=== PATIENT | female | born 1980 | race Caucasian/White ===

== ENCOUNTER → 2016-08-27 | Outpatient (CLI) | payer BC ==
[~2016-08-27] MED LIST: PRENTAB26 PO
== END | disposition home or self-care (01) ==
LOC: C.LAB1850 16:23
PROVIDERS: ATTEND Physical Medicine & Rehabilitation
DX: M79.89 Other specified soft tissue disorders (principal)

== ENCOUNTER → 2016-09-24 | Outpatient (CLI) | payer BC, OTHER | END | disposition home or self-care (01) | LOC: C.RDSM 09:55 | PROVIDERS: ATTEND Physical Medicine & Rehabilitation | DX: M79.89 Other specified soft tissue disorders (principal) ==

== ENCOUNTER → 2017-04-23 | Outpatient (CLI) | payer BC ==
--- NOTE | 2017-04-23 08:49 | DIAGNOSTIC IMAGING REPORT ---
LEFT SHOULDER 3 VIEWS HISTORY: Left shoulder pain. COMPARISON: None. FINDINGS: There is no fracture or dislocation. Soft tissues are unremarkable. No radiopaque foreign bodies. The left clavicle is intact. IMPRESSION: No fracture or dislocation within the left shoulder. Electronically signed by: Berny Benson M.D. 04/23/2017 8:48 AM Dictated Date/Time: 04/23/2017 8:47 AM
== END | disposition home or self-care (01) ==
LOC: C.RADBC 08:16
PROVIDERS: ATTEND Nurse Practitioner Adult Health
DX: M25.512 Pain in left shoulder (principal)

== ENCOUNTER → 2017-04-25 | Outpatient (CLI) | payer BC ==
[2017-04-25 10:53] LABS: BASO % 0.4 %; EOS % 2.1 %; HEMATOCRIT 39.8 % (37-47); LYMPH % 45.8 %; LYMPH ABS # 2.21 K/uL (1.2-3.4); MEAN CELL VOLUME 93.6 fL (80-100); MEAN CORPUSCULAR HEMOGLOBIN 32.2 pg (25-34); MEAN CORPUSCULAR HGB CONC 34.4 g/dl (32-36); MEAN PLATELET VOLUME 9.7 fL (7.4-10.4); MONO % 8.3 %; NEUT % 43.4 %; PLATELET COUNT 214 K/uL (130-400); RED BLOOD COUNT 4.25 M/uL (4.2-5.4); WHITE BLOOD COUNT 4.83 K/uL (4.8-10.8)
[2017-04-25 10:54] LABS: BASO ABS # 0.02 K/uL (0-0.2); COMPLETE YES
[2017-04-25 11:20] LABS: ALT/SGPT 25 U/L (12-78); AST/SGOT 17 U/L (15-37); BLOOD UREA NITROGEN 12 mg/dl (7-18); CALCIUM 8.1 mg/dl (8.5-10.1); CARBON DIOXIDE 27 mmol/L (21-32); CHLORIDE 110 mmol/L (98-107); CREATININE 0.77 mg/dl (0.60-1.20); GLUCOSE 83 mg/dl (70-99); POTASSIUM 4.1 mmol/L (3.5-5.1); SODIUM 142 mmol/L (136-145)
[2017-04-25 11:22] LABS: ALB/GLOB RATIO 1.2 (0.9-2); ALKALINE PHOSPHATASE 52 U/L (45-117); CHOLESTEROL 119 mg/dl (0-200); CHOLESTEROL/HDL RATIO 2.2; HDL CHOLESTEROL 55 mg/dl; LDL CHOLESTEROL CALCULATED 56 mg/dl; TRIGLYCERIDES 38 mg/dl (0-150); VERY LOW DENSITY LIPOPROT CALC 8 mg/dl
== END | disposition home or self-care (01) ==
LOC: C.LABBC 08:10
PROVIDERS: ATTEND Nurse Practitioner Adult Health
DX: Z00.00 Encounter for general adult medical examination without abnormal findings (principal)

== ENCOUNTER → 2017-05-28 | Outpatient (CLI) | payer BC | END | disposition home or self-care (01) | LOC: C.PAPS 11:53 | PROVIDERS: ATTEND Physician Assistant | DX: Z01.419 Encounter for gynecological examination (general) (routine) without abnormal findings (principal) ==

== ENCOUNTER → 2017-07-07 | Outpatient (CLI) | payer BC ==
--- NOTE | 2017-07-07 08:44 | DIAGNOSTIC IMAGING REPORT ---
LEFT TIBIA/FIBULA 2 VIEWS HISTORY: Left LEG PAIN COMPARISON: None. FINDINGS: There is no fracture or dislocation. Soft tissues are unremarkable. No radiopaque foreign bodies. IMPRESSION: No fractures. Electronically signed by: Berny Benson M.D. 07/07/2017 8:43 AM Dictated Date/Time: 07/07/2017 8:40 AM
== END | disposition home or self-care (01) ==
LOC: C.RAD1850 08:22
PROVIDERS: ATTEND Physical Medicine & Rehabilitation
DX: M79.605 Pain in left leg (principal)

== ENCOUNTER → 2017-07-23 | Outpatient (CLI) | payer BC ==
--- NOTE | 2017-07-23 09:29 | DIAGNOSTIC IMAGING REPORT ---
MRI OF THE LEFT TIBIA AND FIBULA WITHOUT CONTRAST CLINICAL HISTORY: Distal left tibia pain. COMPARISON STUDY: Left tibia and fibula radiographs July 07, 2017. TECHNIQUE: Utilizing a 1.5 Tina magnet and dedicated coil, multiplanar, multiecho imaging of the left tibia and fibula was performed without IV contrast. FINDINGS: A marker was placed on the skin at site of maximal pain. This marker overlies the medial distal diaphysis of the left tibia. There is corresponding moderate marrow edema on the T2-weighted sequence within the distal diaphysis of the left tibia. There is associated hypointense signal on the T1-weighted sequence within the marrow as well as associated cortical signal abnormality and periosteal reaction along the medial distal shaft of the left tibia. There is moderate periosteal edema at this site. No fracture line is identified. The left fibula is unremarkable. No mass or well-defined fluid collection is present. Achilles tendon is unremarkable. The adjacent musculature is unremarkable. Talar dome is intact. IMPRESSION: Moderate marrow edema, cortical signal abnormality, periosteal thickening and periosteal edema of the medial distal shaft of the left tibia at site of maximal pain. No fracture line identified. This represents high grade (grade 4a) medial tibial stress syndrome. Electronically signed by: Aldo Burk M.D. 07/23/2017 9:28 AM Dictated Date/Time: 07/23/2017 9:17 AM
== END | disposition home or self-care (01) ==
LOC: C.MRI 07:58
PROVIDERS: ATTEND Physical Medicine & Rehabilitation
DX: R60.9 Edema, unspecified (principal)

== ENCOUNTER → 2017-12-02 | Outpatient (CLI) | payer OTHER | END | disposition home or self-care (01) | LOC: C.LAB1850 07:57 | PROVIDERS: ATTEND Obstetrics & Gynecology | DX: O26.31 Retained intrauterine contraceptive device in pregnancy, first trimester (principal); Z3A.00 Weeks of gestation of pregnancy not specified ==